=== PATIENT | male | born 1955 | race Caucasian/White ===

== ENCOUNTER → 2017-10-17 | Outpatient (CLI) | payer MEDICARE ==
--- NOTE | 2017-10-17 10:03 | NM ---
EXAMINATION TYPE: NM hepatobiliary w EF DATE OF EXAM: 10/17/2017 COMPARISON: Previous exam 06/14/2013 Medicine hepatobiliary scan, ultrasound gallbladder 08/30/2017 HISTORY: Epigastric pain TECHNIQUE: After the intravenous administration of 5.4 mCi Tc 99m Mebrofenin hepatobiliary scintigrap hy is performed. Immediate images post injection. FINDINGS: There is satisfactory initial accumulation of tracer by the liver. The gallbladder is visualized wit hin 4 minutes. The small bowel activity is noted within 26 minutes. At one hour 8 ounces of oral en sure plus is given to mimic CCK and gallbladder ejection fraction is calculated at 91 %, possibly hyp erdynamic. Therefore there is no scintigraphic evidence of cystic or common bile duct obstruction to suggest acute cholecystitis or gallbladder dyskinesia. IMPRESSION: No cystic duct obstruction. Gallbladder ejection fraction is 91%
== END | disposition home or self-care (01) ==
LOC: RADNMMAIN 06:37
PROVIDERS: ATTEND Family Medicine
DX: R10.13 Epigastric pain (principal)
CPT/HCPCS: 78226; A9537

== ENCOUNTER 2018-09-24 13:56 | Observation (INO) | payer MEDICARE ==
[2018-09-24] MEDS ORDERED: ASPIRIN 81 MG PO STA (14:43)
--- NOTE | 2018-09-24 15:15 | XR ---
EXAMINATION TYPE: XR chest 2V DATE OF EXAM: 09/24/2018 COMPARISON: Prior chest 08/29/2017 HISTORY: Chest pain TECHNIQUE: Frontal and lateral views of the chest are obtained. FINDINGS: Patient is post median sternotomy and there are overlying cardiac leads. There is no focal air space opacity, pleural effusion, or pneumothorax seen. The cardiac silhouette size is within no rmal limits, stable. The osseous structures are intact. IMPRESSION: No acute cardiopulmonary process.
[2018-09-24 15:36] LABS: Basophils # (A) 0.1 k/uL (0-0.2); Basophils % (A) 1 %; Eosinophils # (A) 0.2 k/uL (0-0.7); Eosinophils % (A) 3 %; HCT 43.8 % (39.0-53.0); HGB 14.4 gm/dL (13.0-17.5); Lymphocytes # (A) 1.5 k/uL (1.0-4.8); Lymphocytes % (A) 22 %; MCH 30.1 pg (25.0-35.0); MCHC 32.8 g/dL (31.0-37.0); MCV 91.8 fL (80.0-100.0); Mean Platelet Volume 8.2; Monocytes # (A) 0.4 k/uL (0-1.0); Monocytes % (A) 5 %; Neutrophils # (A) 4.4 k/uL (1.3-7.7); Neutrophils % (A) 67 %; Platelet Count 165 k/uL (150-450); RBC 4.77 m/uL (4.30-5.90); WBC 6.6 k/uL (3.8-10.6)
[2018-09-24 15:55] LABS: D-Dimer 0.35 mg/L FEU (<0.60); INR 1.1 (<1.2); Partial Thromboplastin Time 26.5 sec (22.0-30.0); Prothrombin Time 10.5 sec (9.0-12.0)
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
[2018-09-24 15:57] LABS: ALT 19 U/L (21-72); AST 21 U/L (17-59); Alkaline Phosphatase 64 U/L (38-126); Anion Gap 7 mmol/L; Blood Urea Nitrogen 21 mg/dL (9-20); Calcium 9.3 mg/dL (8.4-10.2); Carbon Dioxide 25 mmol/L (22-30); Chloride 107 mmol/L (98-107); Glucose 96 mg/dL (74-99); Lipase 88 U/L (23-300); Magnesium 2.1 mg/dL (1.6-2.3); Potassium 4.6 mmol/L (3.5-5.1); Sodium 139 mmol/L (137-145); Total Bilirubin 0.7 mg/dL (0.2-1.3)
[2018-09-24 15:59] LABS: Creatine Kinase 36 U/L (55-170)
[2018-09-24 16:12] LABS: Creatine Kinase MB 0.8 ng/mL (0.0-2.4); Troponin I <0.012 ng/mL (0.000-0.034)
[2018-09-24] MEDS ORDERED: NITROGLYCERIN SL TABS 0.4 MG TAB SUBLINGUAL PRN ×2 (16:30→16:32)
[2018-09-24] MEDS ORDERED: HEPARIN SODIUM,PORCINE 5,000 UNIT/ML 1 ML VIAL IV ONE (16:30)
[2018-09-24] MEDS ORDERED: HEPARIN SOD,PORK IN 0.45% NACL 25,000 UNIT in 0.45% NACL 1 500ML.BAG IV SCH (16:30)
[2018-09-24] MEDS ORDERED: amLODIPine 5 MG TAB PO STA (16:33)
[2018-09-24] MEDS ORDERED: hydrALAZINE HCL 20 MG/ML 1 ML VIAL IVP PRN (16:33)
[2018-09-24 21:28] LABS: Creatine Kinase 34 U/L (55-170)
[2018-09-24 21:42] LABS: Creatine Kinase MB 0.8 ng/mL (0.0-2.4); Troponin I <0.012 ng/mL (0.000-0.034)
[2018-09-24] MEDS: LISINOPRIL 20 MG TAB PO SCH (23:30)
[2018-09-24] MEDS: ALPRAZolam 0.5 MG TAB PO SCH (23:30)
[2018-09-25] MEDS ORDERED: HEPARIN SODIUM,PORCINE 5,000 UNIT/ML 1 ML VIAL IV PRN (00:31)
[2018-09-25] MEDS: BACLOFEN 10 MG TAB PO SCH ×2 (01:53→20:26)
[2018-09-25 04:01] LABS: Cholesterol 191 mg/dL (<200); HDL Cholesterol 55 mg/dL (40-60); LDL Cholesterol,Calculated 98 mg/dL (0-99); Triglycerides 189 mg/dL (<150)
[2018-09-25 04:30] LABS: Creatine Kinase MB 0.8 ng/mL (0.0-2.4); Troponin I 0.016 ng/mL (0.000-0.034)
[2018-09-25] MEDS ORDERED: CAFFEINE CITRATE 60 MG/3 ML VIAL IV PRN (08:40)
[2018-09-25] MEDS ORDERED: REGADENOSON 0.4 MG/5 ML SYRINGE IV ONE (08:40)
[2018-09-25] MEDS ORDERED: BACLOFEN 10 MG TAB PO SCH (09:00)
[2018-09-25] MEDS ORDERED: ASPIRIN 325 MG TAB PO SCH (09:00)
[2018-09-25] MEDS: LISINOPRIL 20 MG TAB PO SCH ×2 (09:25→20:26)
[2018-09-25] MEDS: amLODIPine 5 MG TAB PO SCH (09:25)
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
--- NOTE | 2018-09-25 11:42 | ECHOF ---
Referral Reason:sob MEASUREMENTS -------- HEIGHT: 175.3 cm WEIGHT: 84.4 kg BP: 125/73 RVIDd: 3.4 cm (< 3.3) IVSd: 1.2 cm (0.6 - 1.1) LVIDd: 5.5 cm (3.9 - 5.3) LVPWd: 1.2 cm (0.6 - 1.1) IVSs: 1.5 cm LVIDs: 3.3 cm LVPWs: 1.6 cm LA Diam: 3.5 cm (2.7 - 3.8) LAESV Index (A-L): 29.31 ml/m Ao Diam: 3.4 cm (2.0 - 3.7) AV Cusp: 2.0 cm (1.5 - 2.6) EPSS: 1.2 cm MV E Ervin: 0.96 m/s MV DecT: 306 ms MV A Ervin: 1.11 m/s MV E/A Ratio: 0.87 MV EF SLOPE: 32.03 mm/s (70 - 150) MV EXCURSION: 1.38 cm (> 18.000) FINDINGS -------- Resting bradycardia (HR<60bpm). This was a technically difficult study with suboptimal views. The left ventricular size is normal. There is borderline concentric left ventricular hypertrophy. Overall left ventricular systolic function is low-normal with, an EF between 50 - 55 %. The right ventricle is mildly enlarged. LA is midly dilated 29-33ml/m2. The right atrium is normal in size. 5 ml of Lumason was utilized for enhancement of images. The aortic valve is trileaflet and appears structurally normal. The mitral valve leaflets are mildly thickened. Mild mitral annular calcification present. The tricuspid valve appears structurally normal. The pulmonic valve was not well visualized. The aortic root size is normal. Normal inferior vena cava with normal inspiratory collapse consistent with estimated right atrial pre ssure of 5 mmHg. There is no pericardial effusion. CONCLUSIONS -------- 1. Resting bradycardia (HR<60bpm). 2. This was a technically difficult study with suboptimal views. 3. The left ventricular size is normal. 4. There is borderline concentric left ventricular hypertrophy. 5. Overall left ventricular systolic function is low-normal with, an EF between 50 - 55 %. 6. The right ventricle is mildly enlarged. 7. LA is midly dilated 29-33ml/m2. 8. The right atrium is normal in size. 9. 5 ml of Lumason was utilized for enhancement of images. 10. The aortic valve is trileaflet and appears structurally normal. 11. The mitral valve leaflets are mildly thickened. 12. Mild mitral annular calcification present. 13. The tricuspid valve appears structurally normal. 14. The pulmonic valve was not well visualized. 15. The aortic root size is normal. 16. Normal inferior vena cava with normal inspiratory collapse consistent with estimated right atrial pressure of 5 mmHg. 17. There is no pericardial effusion. SHOP COOPER: ANNE Calvo
--- NOTE | 2018-09-25 11:57 | NM ---
EXAMINATION TYPE: NM stress lexiscan cardiolite DATE OF EXAM: 09/25/2018 COMPARISON: Previous exam 08/16/2014 nuclear medicine myocardial SPECT HISTORY: Chest pain TECHNIQUE: After the intravenous administration of 10.19 mCi Tc 99m Sestamibi - Cardiolite resting S PECT images acquired 50 minutes post injection. The patient received 0.4mg Lexiscan, 26.1 mCi Tc 99m Sestamibi - Stress images obtained [address] injection FINDINGS: Review of stress and rest SPECT images demonstrates some decreased uptake along the inferior wall lef t ventricle on stress and rest images towards the base of the heart, this is thought to be artifactua l, there is gut activity noted. No evident reduced activity on stress as compared to rest images. Gat ed analysis shows normal wall motion with an estimated left ventricular ejection fraction of 47 %. IMPRESSION: No scintigraphic evidence for reversible ischemia.
[2018-09-25] MEDS: methylPREDNISolone SOD SUCCI 125 MG/2 ML VIAL IV SCH ×3 (14:52→23:04)
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
--- NOTE | 2018-09-25 15:33 | CT ---
CT CHEST FOR PULMONARY EMBOLISM. EXAMINATION TYPE: CT chest angio for PE DATE OF EXAM: 09/25/2018 INDICATION: Difficulty breathing. CT DLP: 294.5 mGycm, Automated exposure control for dose reduction was used. CONTRAST: Patient injected with 100 mL of Isovue 370. COMPARISON: None TECHNIQUE: CT of the chest is performed on a spiral scan at 2 mm thick sections. Study is performed with intravenous contrast timed for evaluation for pulmonary embolism. This will limit additional po rtions of the evaluation. 3-D MIP images reconstructed by the technologist are reviewed on the compu ter in the coronal and sagittal planes. FINDINGS: No persistent filling defects are evident to suggest an acute pulmonary embolism. No mediastinal or hilar adenopathy enlarged by CT criteria is evident. Small shotty lymph nodes are present within the mediastinum. The ascending aorta diameter at the level of the main pulmonary arter y is 4.1 cm. The main pulmonary artery diameter at the bifurcation is 2.5 cm. Lung windows are clear. Limited CT section through the upper abdomen are unremarkable. IMPRESSIONS: 1. Ascending thoracic aortic aneurysm of 4.1 cm. 2. No acute pulmonary embolism.
[2018-09-25] MEDS: IPRATROPIUM-ALBUTEROL 3 ML NEB INHALATION SCH ×2 (16:12→19:28)
[2018-09-25] MEDS: FAMOTIDINE 20 MG/2 ML VIAL IV SCH (20:26)
[2018-09-25] MEDS: ALPRAZolam 0.5 MG TAB PO SCH (20:27)
[2018-09-25] MEDS ORDERED: INSULIN ASPART 100 UNIT/ML 1 ML 10 ML VIAL SQ SCH (21:00)
[2018-09-26] MEDS: IPRATROPIUM-ALBUTEROL 3 ML NEB INHALATION SCH ×7 (00:55→19:57)
[2018-09-26 03:37] LABS: Hemoglobin A1C 5.4 % (4.0-6.0)
[2018-09-26] MEDS: methylPREDNISolone SOD SUCCI 125 MG/2 ML VIAL IV SCH ×4 (06:19→23:33)
[2018-09-26 06:57] LABS: Glucose,Whole Blood 168 mg/dL (75-99)
[2018-09-26] MEDS: INSULIN ASPART 100 UNIT/ML 1 ML 10 ML VIAL SQ SCH ×4 (08:13→20:57)
[2018-09-26] MEDS: FAMOTIDINE 20 MG/2 ML VIAL IV SCH (08:13)
[2018-09-26] MEDS: LISINOPRIL 20 MG TAB PO SCH ×2 (08:13→20:30)
[2018-09-26] MEDS: amLODIPine 5 MG TAB PO SCH (08:13)
[2018-09-26] MEDS: ASPIRIN 81 MG PO SCH (08:13)
[2018-09-26 08:23] LABS: Anion Gap 12 mmol/L; Blood Urea Nitrogen 20 mg/dL (9-20); Calcium 9.8 mg/dL (8.4-10.2); Carbon Dioxide 21 mmol/L (22-30); Chloride 107 mmol/L (98-107); Glucose 235 mg/dL (74-99); Potassium 4.2 mmol/L (3.5-5.1); Sodium 140 mmol/L (137-145)
--- NOTE | 2018-09-26 08:35 | PN ---
PROGRESS NOTE Mr. Fenton is a 63-year-old male known history of coronary artery disease status post bypass grafting, history of chronic obstructive lung disease, who presented with symptoms of progressive dyspnea and chest discomfort. He is doing well this morning. He denies any symptoms of chest pain. His breathing has been stable. He denies any dizziness or palpitations. He denies any nausea. He has underwent a myocardial perfusion imaging that revealed no evidence of inducible ischemia and his left ventricular systolic function by echocardiography was preserved. He continues to be at this time on aspirin 81 mg daily, amlodipine 5 mg daily, lisinopril 20 mg twice a day. The patient has been intolerant to statin. PHYSICAL EXAMINATION: Blood pressure running in the 140s to 150s. Lungs no wheezes. HEART: Regular rhythm S1, S2. No S3 with extra systole and a systolic ejection murmur. No diastolic murmur. ABDOMEN: Soft nontender. EXTREMITIES: No edema. LAB DATA: Lab data revealed a cholesterol of 191, LDL of 98. IMPRESSION: 1. Status post coronary artery bypass grafting with no evidence of stress induced ischemia by a myocardial perfusion imaging. 2. History of chronic obstructive lung disease. 3. Ascending aortic aneurysm measuring 4.1. 4. History of hypertension. 5. Hyperlipidemia not treated. RECOMMENDATIONS: From the cardiac standpoint, the patient is stable to be discharged home. His blood pressure will be followed as an outpatient to make further adjustment as needed. He will follow up on a regular basis with Dr. Oconnell. GREGORY / JARRETT: [id number] /
[2018-09-26 11:57] LABS: Glucose,Whole Blood 243 mg/dL (75-99)
--- NOTE | 2018-09-26 13:31 | P.PN ---
Subjective Progress Note Date: 09/26/18 63-year-old male patient with known history of coronary artery disease appears bypass surgery in 2010, along with history of hypertension and hyperlipidemia and ex-smoker as the patient smoked around 25 pack years and retired from [employer], comes into the hospital because of subacute dyspnea and chest pain. His chest pain is rather atypical involving the left side and then moved to the right in the back. The patient has already had an investigation including an echocardiogram and a Lexiscan stress test both within normal limits. Pulmonary consultation was requested accordingly. Chest x-ray was reviewed and there is no evidence of any pneumonia. There is some hyperinflation. No pleurisy. No hemoptysis. No recurrent exacerbation of any form of chronic lung disease. No childhood asthma. No previous history of DVT or pulmonary was him. White cell count is not elevated at 6.6. D-dimer 0.35. Rest of the blood work is all within normal. Troponin 2 is negative. ProBNP level is 741. His current pulse ox on room air is 94%. On 09/26/2018 I'm seeing this patient for a follow-up. He is feeling slightly better compared to yesterday. CAT scan of the chest was noted. There is also ascending aortic aneurysm measuring 4.1 cm in size. No evidence of any pulmonary embolism. He is on bronchodilators. Is on IV Solu-Medrol. He is a bit anxious. Another issue is the development of hoarseness that his been having for the past 2-3 weeks. No stridor. Objective - Vital Signs Vital signs: Vital Signs Temp 97.8 F 09/26/18 12:00 Pulse 60 09/26/18 12:00 Resp 18 09/26/18 12:00 BP 157/88 09/26/18 12:00 Pulse Ox 97 09/26/18 12:00 Intake & Output 09/25/18 09/26/18 09/26/18 18:59 06:59 18:59 Intake Total 200 Balance 200 Intake: Oral 200 Other: Voiding Method Toilet Toilet Toilet # Voids 1 1 - Exam Gen. appearance, comfortable likely distress Head exam was generally normal. There was no scleral icterus or corneal arcus. Mucous membranes were moist. Neck was supple and without jugular venous distension, thyromegaly, or carotid bruits. Carotids were easily palpable bilaterally. There was no adenopathy. Lungs sounds are diminished and there is pronation of expiratory phase of breathing and scattered expiratory wheezes throughout the lung roberts bilaterally. Cardiac exam revealed the PMI to be normally situated and sized. The rhythm was regular and no extrasystoles were noted during several minutes of auscultation. The first and second heart sounds were normal and physiologic splitting of the second heart sound was noted. There were no murmurs, rubs, clicks, or gallops. There is a systolic ejection murmur grade 2/6 heard throughout the precordium. Sternum stable clean and intact. Abdominal exam revealed normal bowel sounds. The abdomen was soft, non-tender, and without masses, organomegaly, or appreciable enlargement of the abdominal aorta. Examination of the extremities revealed easily palpable radial, femoral and pedal pulses. There was no cyanosis, clubbing or edema. Examination of the skin revealed no evidence of significant rashes, suspicious appearing nevi or other concerning lesions. Neurologically the patient is awake and alert and there is no focal neurological deficit. - Labs CBC & Chem 7: 09/24/18 14:57 09/26/18 07:58 Labs: Abnormal Lab Results - Last 24 Hours (Table) 09/26/18 09/26/18 09/26/18 Range/Units 06:55 07:58 11:53 Carbon Dioxide 21 L (22-30) mmol/L Glucose 235 H (74-99) mg/dL POC Glucose (mg/dL) 168 H 243 H (75-99) mg/dL Assessment and Plan Plan: Assessment 1 shortness of breath likely on the basis of COPD. clinically patient is improving. He'll be continued on a combination of bronchodilators and steroids. Noted the CAT scan of the chest. No evidence of any pulmonary embolism. 2 atypical chest pain in a negative cardiac workup including echocardiogram and a Lexiscan stress test 3 coronary artery disease with previous bypass surgery. Patient has also had previous coronary intervention and stenting in 2013 4 hypertension 5 hyperlipidemia 6 ex-smoker 7 osteoarthritis. 8 new onset hoarseness 9 ascending aortic as an measuring 4.1 cm in size. Plan Continue the patient on the same treatment. Continue bronchodilators. Continue steroids. Discussed the findings. The patient will need an outpatient PFT. ENT evaluation may be also value taken account his ongoing course has been going on for the past 2-3 weeks at least. He does not have any stridor at this point in time.
--- NOTE | 2018-09-26 16:32 | EST ---
EXERCISE STRESS AGE: 63 SEX: Male. HT: 5"9" WEIGHT: 186 pounds. PROTOCOL: Lexiscan Cardiolite STAGE: DURATION OF EXERCISE: HEART RATE REST: 48 BLOOD PRESSURE REST: 168/85 MAXIMUM HEART RATE ACHIEVED: 83 MAXIMUM BLOOD PRESSURE: 168/85 85% MPHR: 132 100% MPHR: 155 METS: INDICATIONS: Chest pain. CLINICAL INFORMATION: Baseline 12-lead ECG shows rhythm with T-wave inversions inferolaterally. PVCs are noted through the test. No other ECG changes are noted. No chest pain was noted. Heart rate and blood pressure remained stable. Nuclear portion will be reported separately. MMODL / IJN: [id number] /
[2018-09-26 17:04] LABS: Glucose,Whole Blood 150 mg/dL (75-99)
--- NOTE | 2018-09-26 17:36 | P.PN ---
Subjective This is a pleasant 63 years old male with past medical history of GERD, hyperlipidemia, hypertension, chronic herniated disc in the low back, coronary artery disease, who presents because of dyspnea. Patient states that's dyspnea the main reason he came to the hospital. Although he reports chest pain and dyspnea for about one month and that his chest pain is resolved relieved partially by Nitro-Tab. He thought that his dyspnea my related to his Norvasc so he stopped taking it for about a week, during which he felt better. However his dyspnea came back so he decided to come to the emergency room. Also patient reports exertional dyspnea with decreased walking distance. With cough. However he has some chest pain on the left side, now was moved to the right side, was 5-6/10 in severity improved partially to 4-5/10. Described by the patient as achy and pressure feeling. 09/26/18 pt dyspnea looks improving , no chest pain , however pt is noted to have hoarseness of voice and ENT conuslt is called, pulmonary follow up is appreciated . pt is on steroid and breathing treatment. Objective - Vital Signs Vital signs: Vital Signs Temp 97.7 F 09/26/18 16:00 Pulse 68 09/26/18 16:00 Resp 16 09/26/18 16:00 BP 161/73 09/26/18 16:00 Pulse Ox 96 09/26/18 16:00 Intake & Output 09/25/18 09/26/18 09/26/18 18:59 06:59 18:59 Intake Total 200 Balance 200 Intake: Oral 200 Other: Voiding Method Toilet Toilet Toilet # Voids 1 1 1 - Labs CBC & Chem 7: 09/24/18 14:57 09/26/18 07:58 Labs: Abnormal Lab Results - Last 24 Hours (Table) 09/26/18 09/26/18 09/26/18 Range/Units 06:55 07:58 11:53 Carbon Dioxide 21 L (22-30) mmol/L Glucose 235 H (74-99) mg/dL POC Glucose (mg/dL) 168 H 243 H (75-99) mg/dL 09/26/18 Range/Units 16:55 Carbon Dioxide (22-30) mmol/L Glucose (74-99) mg/dL POC Glucose (mg/dL) 150 H (75-99) mg/dL Assessment and Plan Assessment: Dyspnea, with chest pain. Rule out acute coronary event History of coronary artery disease and GERD Hyperlipidemia Essential hypertension Chronic herniated disc in the low back. Plan: This is a pleasant 63 years old male who presents because of dyspnea. Crohn continue with same treatment. Continue with symptomatic treatment. Resume home medication. Monitor lytes and vitals. GI and DVT prophylaxis. Cardiology evaluation is appreciated. Further recommendations based on the clinical course of the patient DVT prophylaxis: Subcutaneous heparin GI prophylaxis: Pepcid PT/OT: Pending Prognosis is guarded
[2018-09-26] MEDS ORDERED: IPRATROPIUM-ALBUTEROL 3 ML NEB INHALATION PRN (19:51)
[2018-09-26 20:27] LABS: Glucose,Whole Blood 191 mg/dL (75-99)
[2018-09-26] MEDS: BACLOFEN 10 MG TAB PO SCH (20:30)
[2018-09-26] MEDS: FAMOTIDINE 20 MG TAB PO SCH (20:30)
[2018-09-26] MEDS: ALPRAZolam 0.5 MG TAB PO SCH (20:30)
[2018-09-27] MEDS: methylPREDNISolone SOD SUCCI 125 MG/2 ML VIAL IV SCH ×2 (05:27→12:08)
[2018-09-27 07:02] LABS: Glucose,Whole Blood 128 mg/dL (75-99)
[2018-09-27] MEDS: INSULIN ASPART 100 UNIT/ML 1 ML 10 ML VIAL SQ SCH ×2 (07:28→12:04)
[2018-09-27] MEDS: IPRATROPIUM-ALBUTEROL 3 ML NEB INHALATION SCH ×2 (07:40→11:23)
[2018-09-27 08:03] LABS: Basophils % (A) 0 %; Eosinophils % (A) 0 %; HCT 46.4 % (39.0-53.0); HGB 15.6 gm/dL (13.0-17.5); Lymphocytes # (A) 0.8 k/uL (1.0-4.8); Lymphocytes % (A) 5 %; MCH 31.1 pg (25.0-35.0); MCHC 33.6 g/dL (31.0-37.0); MCV 92.4 fL (80.0-100.0); Mean Platelet Volume 8.9; Monocytes # (A) 0.4 k/uL (0-1.0); Monocytes % (A) 3 %; Neutrophils # (A) 13.7 k/uL (1.3-7.7); Neutrophils % (A) 92 %; Platelet Count 193 k/uL (150-450); RBC 5.02 m/uL (4.30-5.90); RDW 14.1 % (11.5-15.5)
[2018-09-27 08:06] VITALS: RESP 18
[2018-09-27] MEDS: LISINOPRIL 20 MG TAB PO SCH (08:17)
[2018-09-27] MEDS: ASPIRIN 81 MG PO SCH (08:17)
[2018-09-27] MEDS: FAMOTIDINE 20 MG TAB PO SCH (08:17)
[2018-09-27] MEDS: amLODIPine 5 MG TAB PO SCH (08:17)
--- NOTE | 2018-09-27 11:44 | P.OP ---
Date of Procedure: 09/27/18 Preoperative Diagnosis: Hoarseness Postoperative Diagnosis: Same, acute laryngitis Procedure(s) Performed: Flexible nasopharyngeal laryngoscopy Anesthesia: none Surgeon: Chauncey Gómez Estimated Blood Loss (ml): 0 Pathology: none sent Condition: stable Disposition: observation Indications for Procedure: Patient has developed 2 days of hoarseness. Patient denies any dysphagia or other symptomatology. Denies hemoptysis. Hoarseness is described as a course type voice. The patient has not become aphonic. Patient denies any throat pain. He describes this as a mild to moderate hoarseness is been persistent for about 2 days. Nothing seems to make it better or worse. 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 There is no evidence of any tumors or masses. No signs of leukoplakia. No signs of vocal cord polyps. Generalized hypopharyngeal erythema and laryngeal erythema and inflammation noted. Vocal cord movement was normal. Description of Procedure: This patient was placed in a sitting position. An EF type GP nasopharyngoscope was inserted into the patient's right nares as the patient has a left septal deviation. Examination of the nasopharynx demonstrates a fair amount of discolored yellow sinus drainage. In addition, the hypopharynx showed a large amount of redness vocal cords were red. There is a hypopharyngeal to some laryngitis noted. The postnasal drainage was thick and yellow and viscous. There is clear evidence of an acute sinusitis.
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
[2018-09-27 11:56] LABS: Glucose,Whole Blood 122 mg/dL (75-99)
[2018-09-27] MEDS ORDERED: LEVOFLOXACIN 500 MG TAB PO SCH (12:00)
[2018-09-27 12:06] VITALS: BP 161/78; PULSE 52; TEMP 97.6
--- NOTE | 2018-09-27 12:52 | P.PN ---
Subjective Progress Note Date: 09/27/18 63-year-old male patient with known history of coronary artery disease appears bypass surgery in 2010, along with history of hypertension and hyperlipidemia and ex-smoker as the patient smoked around 25 pack years and retired from [employer], comes into the hospital because of subacute dyspnea and chest pain. His chest pain is rather atypical involving the left side and then moved to the right in the back. The patient has already had an investigation including an echocardiogram and a Lexiscan stress test both within normal limits. Pulmonary consultation was requested accordingly. Chest x-ray was reviewed and there is no evidence of any pneumonia. There is some hyperinflation. No pleurisy. No hemoptysis. No recurrent exacerbation of any form of chronic lung disease. No childhood asthma. No previous history of DVT or pulmonary was him. White cell count is not elevated at 6.6. D-dimer 0.35. Rest of the blood work is all within normal. Troponin 2 is negative. ProBNP level is 741. His current pulse ox on room air is 94%. On 09/26/2018 I'm seeing this patient for a follow-up. He is feeling slightly better compared to yesterday. CAT scan of the chest was noted. There is also ascending aortic aneurysm measuring 4.1 cm in size. No evidence of any pulmonary embolism. He is on bronchodilators. Is on IV Solu-Medrol. He is a bit anxious. Another issue is the development of hoarseness that his been having for the past 2-3 weeks. No stridor. On 09/27/2018, I'm seeing this patient for a follow-up. He is doing extremely well. His emanating on the floor. No respiratory distress. No cough sputum production chest tightness or wheezing. He has responded very nicely to the treatment offers.The patient was also seen by ENT as there was concern that the patient had some ongoing hoarseness. The patient underwent a flexible laryngoscopy and was found to have an acute meningitis. He was placed on Levaquin. No other complaints otherwise for now. Objective - Vital Signs Vital signs: Vital Signs Temp 97.6 F 09/27/18 12:00 Pulse 52 L 09/27/18 12:00 Resp 18 09/27/18 12:00 BP 161/78 09/27/18 12:00 Pulse Ox 99 09/27/18 12:00 Intake & Output 09/26/18 09/27/18 09/27/18 18:59 06:59 18:59 Other: Voiding Method Toilet Toilet # Voids 1 2 - Exam Gen. appearance, comfortable likely distress Head exam was generally normal. There was no scleral icterus or corneal arcus. Mucous membranes were moist. Neck was supple and without jugular venous distension, thyromegaly, or carotid bruits. Carotids were easily palpable bilaterally. There was no adenopathy. Lungs sounds are diminished and the wheezing is completely subsided. Cardiac exam revealed the PMI to be normally situated and sized. The rhythm was regular and no extrasystoles were noted during several minutes of auscultation. The first and second heart sounds were normal and physiologic splitting of the second heart sound was noted. There were no murmurs, rubs, clicks, or gallops. There is a systolic ejection murmur grade 2/6 heard throughout the precordium. Sternum stable clean and intact. Abdominal exam revealed normal bowel sounds. The abdomen was soft, non-tender, and without masses, organomegaly, or appreciable enlargement of the abdominal aorta. Examination of the extremities revealed easily palpable radial, femoral and pedal pulses. There was no cyanosis, clubbing or edema. Examination of the skin revealed no evidence of significant rashes, suspicious appearing nevi or other concerning lesions. Neurologically the patient is awake and alert and there is no focal neurological deficit. - Labs CBC & Chem 7: 09/27/18 07:22 09/26/18 07:58 Labs: Abnormal Lab Results - Last 24 Hours (Table) 09/26/18 09/26/18 09/27/18 Range/Units 16:55 20:24 06:59 WBC (3.8-10.6) k/uL Neutrophils # (1.3-7.7) k/uL Lymphocytes # (1.0-4.8) k/uL POC Glucose (mg/dL) 150 H 191 H 128 H (75-99) mg/dL 09/27/18 09/27/18 Range/Units 07:22 11:50 WBC 15.0 H (3.8-10.6) k/uL Neutrophils # 13.7 H (1.3-7.7) k/uL Lymphocytes # 0.8 L (1.0-4.8) k/uL POC Glucose (mg/dL) 122 H (75-99) mg/dL Assessment and Plan Plan: Assessment 1 shortness of breath likely on the basis of COPD. patient is normalized after being treated with a combination of bronchodilators and systemic steroids. 2 atypical chest pain in a negative cardiac workup including echocardiogram and a Lexiscan stress test 3 coronary artery disease with previous bypass surgery. Patient has also had previous coronary intervention and stenting in 2014 4 hypertension 5 hyperlipidemia 6 ex-smoker 7 osteoarthritis. 8 new onset hoarseness 9 ascending aortic as an measuring 4.1 cm in size. 8 hoarseness consistent with laryngitis Plan Start the patient home on a prednisone burst taper, Levaquin, Spiriva maintenance and Ventolin rescue inhaler necessary basis. We will follow him up on outpatient basis.
--- NOTE | 2018-09-27 18:27 | P.DS ---
Providers Date of admission: 09/24/18 17:16 Attending physician: Russel Nichols Consults: 09/24/18 16:31 Consult Physician Urgent Consulting Provider: Sudeep Acevedo Consult Reason/Comments: chest pain Do you want consulting provider notified?: Yes 09/25/18 14:01 Consult Physician Routine Consulting Provider: Mabel Santos Consult Reason/Comments: sob Do you want consulting provider notified?: Yes 09/26/18 13:40 Consult Physician Routine Consulting Provider: Celio Lagos Consult Reason/Comments: voice changes Do you want consulting provider notified?: Yes Primary care physician: [facility] Course: This is a pleasant 63 years old male with past medical history of GERD, hyperlipidemia, hypertension, chronic herniated disc in the low back, coronary artery disease, who presents because of dyspnea. Patient states that's dyspnea the main reason he came to the hospital. Although he reports chest pain and dyspnea for about one month and that his chest pain is resolved relieved partially by Nitro-Tab. He thought that his dyspnea my related to his Norvasc so he stopped taking it for about a week, during which he felt better. However his dyspnea came back so he decided to come to the emergency room. Also patient reports exertional dyspnea with decreased walking distance. With cough. However he has some chest pain on the left side, now was moved to the right side, was 5-6/10 in severity improved partially to 4-5/10. Described by the patient as achy and pressure feeling. pt has been evaluated by cardiology and pt had negative stress test and cleared by cardiology for discharge, also pulmonary team and thought pt has mostly acute COPD exacerbation , with negative CTPA for PE, pt was treated with steroids and breathing treatment and he showed improvement, however he developed hoarseness of voice , ENT did laryngoscopy exam which showed : acute laryngitis , pt was started on levaquin and instructed to f/u with ENT if no resolution and he agrees ,appointment ccould not been done nelson weekend. risks including but not limited to risk of cancer is explained to pt and he verbalized understanding and acceptance. at bed side. pt was cleared by ENT and Pulmonary teams for discharge. problem and managment plan was discussed with pt and he verbalized understanding and acceptance. pt is found stable and can be discharge home in guarded prognosis, however he needs f/u as outpt and he agrees with appointment dates and timing made for him with pcp and pulmonary . he told me he would f/u with his business manager as well. prescription is provided , pt rejected norvasc scripts stating he had it at home Discharge exam Gen.: Patient alert awake and oriented X 3, NOT IN DISTRESS CVS: s1-s2, RRR, no murmur CHEST:bilateral CTA, no wheezing or crepitation Abdomen: Soft, no tenderness, no distention, positive bowel sounds Extremities: No leg edema or induration time spent more than 35 min Patient Condition at Discharge: Fair Plan - Discharge Summary Discharge Rx Participant: No New Discharge Prescriptions: New Levofloxacin [Levaquin] 500 mg PO DAILY #7 tab amLODIPine [Norvasc] 5 mg PO DAILY #30 tab Continue Lisinopril [Zestril] 20 mg PO BID Baclofen [Lioresal] 10 mg PO DAILY [place] 1 tab PO DAILY Nitroglycerin Sl Tabs [Nitrostat] 0.4 mg SUBLINGUAL Q5M PRN #25 tab PRN Reason: Chest Pain Aspirin EC [Ecotrin Low Dose] 81 mg PO DAILY #30 tablet. Albuterol Inhaler [Ventolin Hfa Inhaler] 1 - 2 puff INHALATION RT-Q6H PRN PRN Reason: Shortness Of Breath ALPRAZolam [Xanax] 0.5 mg PO HS [place]-3 Fatty Acids/Fish Oil [Fish Oil 1,000 mg Softgel] 1 cap PO DAILY Acetaminophen [Tylenol] 500 mg PO Q4HR PRN PRN Reason: Pain Discharge Medication List Baclofen [Lioresal] 10 mg PO DAILY 08/15/14 [History] Lisinopril [Zestril] 20 mg PO BID 08/15/14 [History] [place] 1 tab PO DAILY 08/15/14 [History] Aspirin EC [Ecotrin Low Dose] 81 mg PO DAILY #30 tablet. 08/18/14 [Rx] Nitroglycerin Sl Tabs [Nitrostat] 0.4 mg SUBLINGUAL Q5M PRN #25 tab 08/18/14 [Rx ] Albuterol Inhaler [Ventolin Hfa Inhaler] 1 - 2 puff INHALATION RT-Q6H PRN [History] ALPRAZolam [Xanax] 0.5 mg PO HS 12/25/17 [History] [place]-3 Fatty Acids/Fish Oil [Fish Oil 1,000 mg Softgel] 1 cap PO DAILY [History] Acetaminophen [Tylenol] 500 mg PO Q4HR PRN 09/24/18 [History] Levofloxacin [Levaquin] 500 mg PO DAILY #7 tab 09/27/18 [Rx] amLODIPine [Norvasc] 5 mg PO DAILY #30 tab 09/27/18 [Rx] Follow up Appointment(s)/Referral(s): Chauncey Gómez DO [Doctor of Osteopathic Medicine] - As Needed (follow up if hoarseness is persistent after one month. ) Rebeca Malagon DO [Primary Care Provider] - 09/30/18 9:20 am Mabel Santos MD [STAFF PHYSICIAN] - 10/07/18 2:30 pm (pulmonary clinic ) Maciel Oconnell MD [STAFF PHYSICIAN] - 2 Weeks (follow up 2-3 weeks.) Patient Instructions/Handouts: Chest Pain (DC), Laryngitis (DC), COPD (Chronic Obstructive Pulmonary Disease) (DC) Activity/Diet/Wound Care/Special Instructions: Follow-up with Dr. Gómez, , if hoarseness is persistent. cardiac diet activity is limited till you follow up with your doctor Discharge Disposition: HOME SELF-CARE
== END 2018-09-27 14:05 | disposition home or self-care (01) ==
LOC: EC 13:56 → 1SOBS 17:16
PROVIDERS: ADMIT Internal Medicine; ATTEND Internal Medicine
DX: R07.89 Other chest pain (principal); J44.1 Chronic obstructive pulmonary disease with (acute) exacerbation; J04.0 Acute laryngitis; J01.90 Acute sinusitis, unspecified; J34.2 Deviated nasal septum; M19.90 Unspecified osteoarthritis, unspecified site; K21.9 Gastro-esophageal reflux disease without esophagitis; I10 Essential (primary) hypertension; E78.5 Hyperlipidemia, unspecified; M51.26 Other intervertebral disc displacement, lumbar region; T46.1X6A Underdosing of calcium-channel blockers, initial encounter; Z91.128 Patient's intentional underdosing of medication regimen for other reason; Z91.14 Patient's other noncompliance with medication regimen; I25.810 Atherosclerosis of coronary artery bypass graft(s) without angina pectoris; F41.9 Anxiety disorder, unspecified; E66.9 Obesity, unspecified; Z68.27 Body mass index [BMI] 27.0-27.9, adult; I71.2 Thoracic aortic aneurysm, without rupture; Z79.899 Other long term (current) drug therapy; Z79.82 Long term (current) use of aspirin; Z88.0 Allergy status to penicillin; Z88.5 Allergy status to narcotic agent; Z88.8 Allergy status to other drugs, medicaments and biological substances; Z95.1 Presence of aortocoronary bypass graft; Z95.5 Presence of coronary angioplasty implant and graft; Z96.642 Presence of left artificial hip joint; Z90.49 Acquired absence of other specified parts of digestive tract; Z87.891 Personal history of nicotine dependence; Z90.89 Acquired absence of other organs; Z82.49 Family history of ischemic heart disease and other diseases of the circulatory system; Z81.2 Family history of tobacco abuse and dependence
CPT/HCPCS: 31575; 96366 ×2; 96375; 96376 ×3; 96365; 99285; 36415; 94640 ×6; 94760; 93005; 93017; 97161; 97165; 85379; 83880; 80061; 80053; 80048; 82550 ×2; 82553 ×2; 83690; 83735; 84484 ×2; 85025 ×2; 85610; 85730; 83036; 71046; 71275; 78452; G0378 ×4; C8929; A9500; J1644 ×2; J2930 ×3; J2785; Q9950; Q9967; 93306

== ENCOUNTER 2023-06-12 06:09 | Emergency (ER) | payer MEDICARE ==
[2023-06-12 06:16] VITALS: TEMP 98.9
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
[2023-06-12 07:19] VITALS: BP 170/86; PULSE 55; RESP 15
[2023-06-12 08:26] LABS: Appearance,Urine Clear (Clear); Bacteria,Urine Many /hpf; Bilirubin,Urine Negative (Negative); Blood,Urine Large (Negative); Color,Urine Light Yellow; Glucose,Urine (UA) Negative (Negative); Ketones,Urine Negative (Negative); Leukocyte Esterase,Urine Negative (Negative); Mucus,Urine Rare /hpf; Nitrite,Urine Positive (Negative); PH, Urine 6.5 (5.0-8.0); Protein,Urine 1+ (Negative); RBC,Urine 164 /hpf (0-5); Urobilinogen,Urine <2.0 mg/dL (<2.0); WBC,Urine 6 /hpf (0-5)
== END 2023-06-12 09:09 | disposition home or self-care (01) ==
LOC: EC 06:09
DX: S37.30XA Unspecified injury of urethra, initial encounter (principal); I25.10 Atherosclerotic heart disease of native coronary artery without angina pectoris; I10 Essential (primary) hypertension; F41.9 Anxiety disorder, unspecified; M19.90 Unspecified osteoarthritis, unspecified site; F12.90 Cannabis use, unspecified, uncomplicated; Z79.899 Other long term (current) drug therapy; Z88.5 Allergy status to narcotic agent; Z88.0 Allergy status to penicillin; Z88.8 Allergy status to other drugs, medicaments and biological substances; X58.XXXA Exposure to other specified factors, initial encounter
CPT/HCPCS: 51702; 81001; 99283

== ENCOUNTER 2023-10-21 11:56 | Observation (INO) | payer MEDICARE ==
[2023-10-21] MEDS ORDERED: ASPIRIN 81 MG PO STA (12:34)
[2023-10-21] MEDS ORDERED: NITROGLYCERIN OINT 1 INCH/GM PACKET TOPICAL STA (12:34)
[2023-10-21 12:37] LABS: Basophils # (A) 0.1 k/uL (0-0.2); Basophils % (A) 1 %; Eosinophils # (A) 0.1 k/uL (0-0.7); Eosinophils % (A) 1 %; HCT 47.9 % (39.0-53.0); Lymphocytes # (A) 1.8 k/uL (1.0-4.8); Lymphocytes % (A) 26 %; MCH 30.2 pg (25.0-35.0); MCHC 33.4 g/dL (31.0-37.0); MCV 90.4 fL (80.0-100.0); Mean Platelet Volume 8.8; Monocytes # (A) 0.4 k/uL (0-1.0); Monocytes % (A) 5 %; Neutrophils # (A) 4.5 k/uL (1.3-7.7); Neutrophils % (A) 65 %; Platelet Count 198 k/uL (150-450); RDW 13.5 % (11.5-15.5)
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
[2023-10-21 12:53] LABS: ALT 14 U/L (4-49); AST 25 U/L (17-59); African American GFR (CKD) >90 (>60 ml/min/1.73 sqM); Albumin 4.3 g/dL (3.5-5.0); Alkaline Phosphatase 59 U/L (38-126); Anion Gap 8 mmol/L; Blood Urea Nitrogen 25 mg/dL (9-20); Calcium 9.8 mg/dL (8.4-10.2); Carbon Dioxide 26 mmol/L (22-30); Chloride 104 mmol/L (98-107); Glucose 105 mg/dL (74-99); Non-African American GFR(CKD) 79 (>60 ml/min/1.73 sqM); Potassium 4.3 mmol/L (3.5-5.1); Sodium 138 mmol/L (137-145); Total Protein 7.4 g/dL (6.3-8.2)
[2023-10-21 13:02] LABS: INR 1.1 (<1.2)
[2023-10-21 13:03] LABS: Prothrombin Time 11.5 sec (10.0-12.5)
--- NOTE | 2023-10-21 13:16 | XR ---
EXAMINATION TYPE: XR chest 2V DATE OF EXAM: 10/21/2023 COMPARISON: 09/24/2018 HISTORY: 68-year-old male with chest pain TECHNIQUE: PA and lateral views FINDINGS: The cardiomediastinal silhouette, aorta, and pulmonary vasculature are within normal limits. Hyperinf lation. Lungs and pleural spaces are clear. Median sternotomy wires and post-CABG clips. IMPRESSION: COPD. No acute process seen.
[2023-10-21] MEDS ORDERED: NITROGLYCERIN SL TABS 0.4 MG TAB SUBLINGUAL PRN (13:40)
[2023-10-21] MEDS ORDERED: ACETAMINOPHEN TAB 325 MG TAB PO PRN (14:04)
[2023-10-21] MEDS ORDERED: NALOXONE 0.4 MG/ML 1 ML VIAL IV PRN (14:04)
[2023-10-21] MEDS ORDERED: CALCIUM CARBONATE 500 MG CHEWABLE PO PRN (14:04)
[2023-10-21] MEDS ORDERED: hydrALAZINE HCL 20 MG/ML 1 ML VIAL IVP PRN (14:04)
[2023-10-21] MEDS ORDERED: ONDANSETRON 4 MG/2 ML VIAL IVP PRN (14:04)
[2023-10-21] MEDS ORDERED: ALBUTEROL HFA INHALER INHALATION PRN (14:13)
[2023-10-21] MEDS ORDERED: SODIUM CHLORIDE 0.9% 1,000 ML IV SCH (14:15)
[2023-10-21] MEDS ORDERED: amLODIPine 5 MG TAB PO STA (14:26)
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
[2023-10-21] MEDS: NITROGLYCERIN OINT 1 INCH/GM PACKET TOPICAL SCH ×2 (19:38→23:38)
[2023-10-21] MEDS ORDERED: ALPRAZolam 0.5 MG TAB PO SCH (21:00)
[2023-10-22] MEDS: NITROGLYCERIN OINT 1 INCH/GM PACKET TOPICAL SCH (05:50)
[2023-10-22] MEDS ORDERED: DOBUTamine DRIP for NUC MED 500 MG in DEXTROSE/WATER 1 250ML.BAG IV PRN (07:47)
[2023-10-22 08:48] LABS: Basophils # (A) 0.08 X 10*3/uL (0.00-0.10); Eosinophils # (A) 0.19 X 10*3/uL (0.04-0.35); Eosinophils % (A) 2.4 %; HCT 45.7 % (39.6-50.0); Lymphocytes # (A) 2.84 X 10*3/uL (0.90-5.00); Lymphocytes % (A) 35.6 %; MCHC 32.8 g/dL (32.0-37.0); MCV 88.4 FL (80.0-97.0); Mean Platelet Volume 11.3 FL (9.5-12.2); Monocytes # (A) 0.73 X 10*3/uL (0.20-1.00); Monocytes % (A) 9.1 %; NRBC Per 100 WBC 0 X 10*3/uL (0.00-0.01); Neutrophils # (A) 4.09 X 10*3/uL (1.80-7.70); Neutrophils % (A) 51.3 %; Platelet Count 199 X 10*3/uL (140-440); RBC 5.17 X 10*6/uL (4.40-5.60); RDW 13.6 % (11.5-14.5); WBC 7.98 X 10*3/uL (4.50-10.00)
[2023-10-22 08:57] LABS: BUN/Creat Ratio 18.75 Ratio (12.00-20.00); Blood Urea Nitrogen 22.5 mg/dL (9.0-27.0); Calcium 9.5 mg/dL (8.7-10.3); Carbon Dioxide 25.6 mmol/L (21.6-31.8); Chloride 105 mmol/L (96-109); Chol/HDL Ratio 3.44 Ratio; Glucose 90 mg/dL (70-110); LDL Cholesterol,Calculated 114.2 mg/dL (0.0-131.0); Potassium 4.4 mmol/L (3.5-5.5); Sodium 141 mmol/L (135-145)
[2023-10-22] MEDS ORDERED: DOBUTamine DRIP for NUC MED 500 MG/250 ML BAG IV ONE (09:00)
[2023-10-22] MEDS ORDERED: ASPIRIN 325 MG TAB PO SCH (09:00)
[2023-10-22] MEDS ORDERED: LOSARTAN 50 MG TAB PO SCH (09:00)
[2023-10-22] MEDS ORDERED: ASPIRIN 81 MG PO SCH (09:00)
[2023-10-22] MEDS ORDERED: amLODIPine 10 MG TAB PO SCH (09:00)
[2023-10-22] MEDS ORDERED: FAMOTIDINE 20 MG TAB PO SCH (09:30)
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
--- NOTE | 2023-10-22 10:56 | CA ---
Dobutamine Stress Echocardiogram Report Houston Fenton Age: 68 Gender: M : 1955 Exam Date: 10/22/2023 10:03 Exam Location: [facility] Ordering Physician: Melissa Allan Referring Physician: [id number] Lab Technician: Maryanne Morgan RDCS Technologist: Ht (in): 69 Wt (lb): 158 Procedure CPT: Indication: CP ICD-9 Codes: Rhythm: Patient History: CP, TE, PALP, NUMBNESS FACE/NECK, HTN, FAMILY HX, CATH (2013), CABG (2000) Cardiac Medications: SEE CHART Medications in past 24 hours: Contrast: N/A Total Dose (mL): Stress Results Protocol: Dobutamine Peak Dose (???g/kg/min): 30 Duration (min:sec): Atropine:(mg) None Target HR: 128 Double Product: [id number] Resting HR: 59 Resting BP: 165 / 87 Peak HR: 144 Peak BP: 185 / 77 Max Predicted HR: 150 96 % Max Predicted HR Stress Summary: BP Response: Reason for Termination: Exceeded target heart rate (85% max predicted) Cardiac Symptoms: ASYMPTOMATIC ECG Analysis Resting EKG: Normal sinus rhythm normal axis normal intervals Stress EKG: No significant ST segment depression at 90% of predicted maximal heart rate Arrhythmia: Occasional PVCs Echo Analysis Base Echo Analysis: Normal left ventricular size wall motion systolic function atypical septal motion Low Echo Anaylsis: Normal hyperdynamic response Peak Echo Analysis: Normal hyperdynamic response Recovery Echo: Normal MEASUREMENTS (Male/Female) Normal Values CONCLUSIONS Negative dobutamine stress echo Dr. Fabien Mckeon MD (Electronically Signed) Final Date: 22 October 2023 10:55
--- NOTE | 2023-10-22 12:34 | CA ---
Transthoracic Echo Report Name: Houston Fenton Age: 68 Gender: M : 1955 Exam Date: 10/22/2023 10:19 Exam Location: [facility] Ht (in): 69 Wt (lb): 158 Ordering Physician: Melissa Allan Attending/Referring Phys: [id number], Jerrell Garden Worker Maryanne Morgan RDCS Procedure CPT: Indications: LV function Cardiac Hx: Technical Quality: Fair Contrast 1: Total Dose (mL): Contrast 2: Total Dose (mL): MEASUREMENTS (Male / Female) Normal Values 2D ECHO LV Diastolic Diameter PLAX 2.4 cm 4.2 - 5.9 / 3.9 - 5.3 cm LV Systolic Diameter PLAX 1.6 cm IVS Diastolic Thickness 1.3 cm 0.6 - 1.0 / 0.6 - 0.9 cm LVPW Diastolic Thickness 1.3 cm 0.6 - 1.0 / 0.6 - 0.9 cm LV Relative Wall Thickness 1.0 LA Volume 82.7 cm??? 18 - 58 / 22 - 52 cm??? LA Volume Index 44.2 cm???/m??? 16 - 28 cm???/m??? DOPPLER AV Peak Velocity 207.3 cm/s AV Peak Gradient 17.2 mmHg AV Mean Velocity 146.3 cm/s AV Mean Gradient 9.8 mmHg AV Velocity Time Integral 41.1 cm LVOT Peak Velocity 116.2 cm/s LVOT Peak Gradient 5.4 mmHg LVOT Velocity Time Integral 24.1 cm MV Area PHT 4.1 cm??? Mitral E Point Velocity 89.9 cm/s Mitral A Point Velocity 120.6 cm/s Mitral E to A Ratio 0.7 MV Deceleration Time 185.7 ms MV E' Velocity 6.6 cm/s Mitral E to MV E' Ratio 13.6 FINDINGS Left Ventricle Mildly increased left ventricular wall thickness. Left ventricular cavity size normal. Normal left ventricular systolic function with no obvious regional wall motion abnormalities. Left ventricular ejection fraction is estimated at 50-55 %. Right Ventricle Right ventricle not well visualized. Right Atrium Normal right atrial size. Left Atrium Severely increased left atrial volume. Mitral Valve Mitral valve thickened. Mild mitral annular calcification. [id number] mitral regurgitation. Aortic Valve Mild aortic stenosis with a peak gradient of 17 mmHg and a mean gradient of 10 mmHg. Tricuspid Valve Tricuspid valve not well visualized. Pulmonic Valve Pulmonic valve not well visualized. Pericardium No pericardial effusion. Aorta Aortic root and proximal ascending aorta not well visualized. CONCLUSIONS Normal LV function Thickened mitral valve leaflets with mild to moderate mitral regurgitation Aortic sclerosis with mild aortic stenosis Previewed by: Dr. Fabien Mckeon MD (Electronically Signed) Final Date: 22 October 2023 12:33
[2023-10-22] MEDS ORDERED: hydrALAZINE HCL 20 MG/ML 1 ML VIAL IVP PRN (13:14)
[2023-10-22 13:17] VITALS: RESP 16; TEMP 98.1
--- NOTE | 2023-10-22 13:17 | P.DS ---
Providers Date of admission: 10/21/23 13:40 Expected date of discharge: 10/22/23 Attending physician: Mary Ellis MD Consults: 10/21/23 13:40 Consult Physician Urgent Consulting Provider: Sudeep Acevedo Consult Reason/Comments: cp, reviewed EKGs Do you want consulting provider notified?: Yes Primary care physician: [facility] Course: * 68-year-old gentleman with past medical history significant for hyperlipidemia, ascending aortic aneurysm, history of COPD, coronary artery disease history of CABG presents to the emergency department with complains of chest pain. Symptom onset was 24 hours prior to arrival. Patient complained of midsternal chest pressure, this was associated with nausea, shortness of breath and dizziness. Patient had been a syncopal episode prior to arrival. * Workup initiated in ER included basic metabolic panel which was essentially negative. Patient had an EKG done initially which did show PVCs, with right axis deviation ST segment depression in lateral leads noted follow-up EKG obtained showed no significant ST segment changes. * Upon admission patient was noted to have elevated blood pressure with systolic pressure in 190s, when necessary IV hydralazine ordered * Blood work obtained included CBC which wasn't normal limits, serum chemistry was within normal limits, troponin obtained negative * Patient says his blood pressure has been running high for the last 2 months, he didn't follow up with cardiology last week however during the office. His blood pressure was well * Patient did have cold-like symptoms and was given steroids and nasal decongestant for the last 1 week however he stopped taking after his blood pressure was running high * 10/22/2023: Patient seen and evaluated while on his way to stress test, patient stress test came back negative blood pressure better controlled with updated blood pressure regimen, requested to repeat her blood pressure remained stable patient to be discharged patient cleared for discharge by cardiology REVIEW OF SYSTEMS: Chest pain resolved CONSTITUTIONAL: No fever, no malaise, no fatigue. HEENT: No recent visual problems or hearing problems. Denied any sore throat. CARDIOVASCULAR: No chest pain, orthopnea, PND, no palpitations, no syncope. PULMONARY: No shortness of breath, no cough, no hemoptysis. GASTROINTESTINAL: No diarrhea, no nausea, no vomiting, no abdominal pain. NEUROLOGICAL: No headaches, no weakness, no numbness. HEMATOLOGICAL: Denies any bleeding or petechiae. GENITOURINARY: Denies any burning micturition, frequency, or urgency. MUSCULOSKELETAL/RHEUMATOLOGICAL: Denies any joint pain, swelling, or any muscle pain. ENDOCRINE: Denies any polyuria or polydipsia. PHYSICAL EXAMINATION: GENERAL: The patient is alert and oriented x3, not in any acute distress. Well developed, well nourished. HEENT: Pupils are round and equally reacting to light. EOMI. CARDIOVASCULAR: S1 and S2 present. No murmurs, rubs, or gallops. PULMONARY: Chest is clear to auscultation, no wheezing or crackles. ABDOMEN: Soft, nontender, nondistended, normoactive bowel sounds. No palpable organomegaly. MUSCULOSKELETAL: No joint swelling or deformity. EXTREMITIES: No cyanosis, clubbing, or pedal edema. NEUROLOGICAL: Gross neurological examination did not reveal any focal deficits. Assessment: Assessment and plan Coronary artery disease with history of CABG chest pain on admission angina Hypertension urgency History of COPD Hypothyroid * In regards to chest pain, serial troponins ordered, EKG as needed, sublingual nitroglycerin, cardiology consulted, echocardiogram shows preserved ejection fraction, aortic sclerosis noted >> negative dobutamine stress test * In regards to hypertensive urgency patient started on when necessary IV hydralazine and will resume home medication including amlodipine * In regards to hypothyroid continue patient on Synthyroid * In regards to COPD continue albuterol as needed Patient Condition at Discharge: Good Plan - Discharge Summary Discharge Rx Participant: No New Discharge Prescriptions: New Losartan [Cozaar] 50 mg PO DAILY 30 Days #30 tab amLODIPine [Norvasc] 10 mg PO DAILY 30 Days #30 tab Metoprolol Succinate (ER) [Toprol XL] 25 mg PO DAILY 30 Days #30 tab Continue Baclofen [Lioresal] 10 mg PO HS Nitroglycerin Sl Tabs [Nitrostat] 0.4 mg SUBLINGUAL Q5M PRN #25 tab PRN Reason: Chest Pain Aspirin EC [Ecotrin Low Dose] 81 mg PO DAILY #30 [place]. ALPRAZolam [Xanax] 0.5 mg PO HS [place]-3 Fatty Acids/Fish Oil [Fish Oil 1,000 mg Softgel] 1 cap PO DAILY Famotidine [Pepcid] 20 mg PO DAILY Red [place] 400mg 400 mg PO DAILY Silver Sulfadiazine [Silver Sulfadiazine 1%] 1 applic TOPICAL BID PRN PRN Reason: knee wound Discontinued amLODIPine [Norvasc] 5 mg PO DAILY #30 tab Discharge Medication List Baclofen [Lioresal] 10 mg PO HS 08/15/14 [History] Aspirin EC [Ecotrin Low Dose] 81 mg PO DAILY #30 tablet. 08/18/14 [Rx] Nitroglycerin Sl Tabs [Nitrostat] 0.4 mg SUBLINGUAL Q5M PRN #25 tab 08/18/14 [Rx] ALPRAZolam [Xanax] 0.5 mg PO HS 12/25/17 [History] [place]-3 Fatty Acids/Fish Oil [Fish Oil 1,000 mg Softgel] 1 cap PO DAILY 12/25/17 [History] Famotidine [Pepcid] 20 mg PO DAILY 10/21/23 [History] Red [place] 400mg 400 mg PO DAILY 10/21/23 [History] Silver Sulfadiazine [Silver Sulfadiazine 1%] 1 applic TOPICAL BID PRN 10/21/23 [History] Losartan [Cozaar] 50 mg PO DAILY 30 Days #30 tab 10/22/23 [Rx] Metoprolol Succinate (ER) [Toprol XL] 25 mg PO DAILY 30 Days #30 tab 10/22/23 [Rx] amLODIPine [Norvasc] 10 mg PO DAILY 30 Days #30 tab 10/22/23 [Rx] Follow up Appointment(s)/Referral(s): Rebeca Malagon DO [Primary Care Provider] - 1-2 days Fabien Mckeon MD [STAFF PHYSICIAN] - 1 Week Discharge Disposition: HOME SELF-CARE
[2023-10-22 13:46] VITALS: BP 137/74; PULSE 66
[2023-10-22] MEDS ORDERED: BACLOFEN 10 MG TAB PO SCH (21:00)
[2023-10-23] MEDS ORDERED: METOPROLOL SUCCINATE (ER) 25 MG TAB.ER.24H PO SCH (09:00)
== END 2023-10-22 14:03 | disposition home or self-care (01) ==
LOC: EC 11:56 → 6NMEDSUR 13:40
PROVIDERS: ADMIT Internal Medicine; ATTEND Internal Medicine
DX: I25.119 Atherosclerotic heart disease of native coronary artery with unspecified angina pectoris (principal); R00.2 Palpitations; I49.3 Ventricular premature depolarization; I16.0 Hypertensive urgency; I10 Essential (primary) hypertension; J44.9 Chronic obstructive pulmonary disease, unspecified; K21.9 Gastro-esophageal reflux disease without esophagitis; E78.5 Hyperlipidemia, unspecified; G89.29 Other chronic pain; F41.9 Anxiety disorder, unspecified; E03.9 Hypothyroidism, unspecified; Z20.822 Contact with and (suspected) exposure to COVID-19; Z95.5 Presence of coronary angioplasty implant and graft; Z79.82 Long term (current) use of aspirin; Z79.899 Other long term (current) drug therapy; Z88.0 Allergy status to penicillin; Z88.5 Allergy status to narcotic agent
CPT/HCPCS: 99285; 36415; 93005; 93306; 93351; 85379; 80061; 80053; 80048; 83735; 84484; 85025 ×2; 85610; 85730; 87636; 71046; G0378 ×2; J1250